=== PATIENT | female | born 1985 | race Caucasian/White ===

== ENCOUNTER 2021-07-05 14:29 | Emergency (ER) | payer SELFPAY ==
[2021-07-05 14:36] VITALS: BMI 31.1
[2021-07-05 15:54] VITALS: BP 123/72; PULSE 94; TEMP 98
== END 2021-07-05 16:16 | disposition home or self-care (01) ==
LOC: JER 14:29
DX: O26.893 Other specified pregnancy related conditions, third trimester (principal); R10.9 Unspecified abdominal pain; Z3A.34 34 weeks gestation of pregnancy
CPT/HCPCS: 99281-25

== ENCOUNTER 2021-08-07 07:47 | Inpatient (IN) | payer OTHER ==
[2021-08-07] MEDS ORDERED: CITRIC ACID/SODIUM CITRATE 30 ML UNIT-DOSE CUP PO ONE (08:44)
[2021-08-07] MEDS ORDERED: ELECTROLYTE-148 SOLN 1,000 ML IV SCH (08:45)
[2021-08-07 09:00] VITALS: BMI 30.9
[2021-08-07] MEDS ORDERED: ceFAZolin SODIUM 1 GM VIAL ONE (10:17)
[2021-08-07] MEDS ORDERED: KETOROLAC TROMETHAMINE 30 MG/1 ML VIAL ONE (10:17)
[2021-08-07] MEDS ORDERED: morphine SULFATE (PF) 1 MG/2 ML SYRINGE ONE (10:17)
[2021-08-07] MEDS ORDERED: ONDANSETRON 4 MG/2 ML VIAL ONE (10:17)
[2021-08-07] MEDS ORDERED: ePHEDrine SULFATE 50 MG/1 ML AMPULE ONE (10:18)
[2021-08-07] MEDS ORDERED: OXYTOCIN 20 UNITS in 0.9% NS 20 UNIT/1,000 ML INFUS.BAG IV ONE ×2 (10:23→13:37)
[2021-08-07 11:22] LABS: URINE APPEARANCE CLEAR; URINE BILIRUBIN NEGATIVE (NEGATIVE); URINE COLOR YELLOW; URINE GLUCOSE (UA) NEGATIVE (NEGATIVE); URINE KETONE NEGATIVE (NEGATIVE); URINE LEUK ESTERASE NEGATIVE (NEGATIVE); URINE NITRITE NEGATIVE (NEGATIVE); URINE PROTEIN NEGATIVE (NEGATIVE); URINE UROBILINOGEN 0.2 mg/dL (0.2-1.0)
[2021-08-07 11:51] LABS: URINE RBC FEW /uL (0-23.9)
[2021-08-07] MEDS ORDERED: OXYTOCIN 10 UNITS/ML VIAL IM ONE (12:08)
[2021-08-07] MEDS ORDERED: IBUPROFEN 800 MG/8 ML IJ IVPB PRN (12:09)
[2021-08-07] MEDS ORDERED: BENZOCAINE 20% 57 GM BOTTLE TP PRN (12:09)
[2021-08-07] MEDS ORDERED: BENZOCAINE 28 GM HEMORRHOIDAL OINTMENT TP PRN (12:09)
[2021-08-07] MEDS ORDERED: METHYLERGONOVINE MALEATE 0.2 MG/1 ML AMP IM PRN (12:09)
[2021-08-07] MEDS ORDERED: WITCH HAZEL 50% (TUCKS) 40 PAD/JAR PAD TP PRN (12:09)
[2021-08-07] MEDS ORDERED: oxyCODONE HCL 5 MG TABLET PO PRN (12:09)
[2021-08-07 12:14] LABS: METHADONE, UR NEGATIVE (NEGATIVE); URINE AMPHETAMINES NEGATIVE (NEGATIVE); URINE BARBITURATES NEGATIVE (NEGATIVE); URINE BENZODIAZEPINES NEGATIVE (NEGATIVE)
[2021-08-07 12:15] LABS: OPIATES, URI NEGATIVE (NEGATIVE); PHENCYCLIDINE,URINE NEGATIVE (NEGATIVE)
[2021-08-07] MEDS ORDERED: OXYTOCIN 20 UNITS in 0.9% NS 20 UNIT/1,000 ML INFUS.BAG IV SCH (12:15)
[2021-08-07 12:17] LABS: COCAINE, UR NEGATIVE (NEGATIVE)
[2021-08-07] MEDS ORDERED: ONDANSETRON 4 MG/2 ML VIAL IVPUSH PRN (12:17)
[2021-08-07] MEDS ORDERED: ACETAMINOPHEN INJECTION 100 ML IVPB ONE (12:47)
[2021-08-07] MEDS: ACETAMINOPHEN 1000 MG/100 ML VIAL IVPB SCH ×2 (12:52→18:14)
[2021-08-07] MEDS: FERROUS SO4 325 MG TABLET (FP) PO SCH (21:19)
[2021-08-08 05:51] LABS: BASO % 0.2 % (0-2.0); EOS % 0.3 % (0-4.5); HEMATOCRIT 30.8 % (32.4-45.2); HEMOGLOBIN 10.9 GM/dL (10.7-15.3); LYMPH % 12.5 % (8-40); MCH 33.8 pg (25.7-33.7); MCHC 35.5 g/dl (32.0-36.0); MEAN CELL VOLUME 95.1 fl (80-96); MEAN PLT VOLUME 8.8 fl (7.5-11.1); MONO % 6.7 % (3.8-10.2); NEUT % 80.3 % (42.8-82.8); PLATELET COUNT 193 10^3/uL (134-434); RBC 3.24 M/mm3 (3.60-5.2); RDW 14.5 % (11.6-15.6); WHITE BLOOD COUNT 10.7 K/mm3 (4.0-10.0)
[2021-08-08] MEDS: FERROUS SO4 325 MG TABLET (FP) PO SCH ×2 (09:32→21:20)
[2021-08-08] MEDS: PRENATAL VITAMINS W/ FOLIC ACID TABLET (FP) PO SCH (09:32)
[2021-08-08] MEDS: SIMETHICONE 80 MG TAB.CHEW (FP) PO PRN ×2 (09:40→15:10)
[2021-08-08] MEDS ORDERED: BISACODYL 10 MG SUPP.RECT RC PRN (12:09)
[2021-08-08] MEDS: IBUPROFEN 600 MG TABLET (FP) PO PRN (15:10)
[2021-08-08 22:57] LABS: SYPHILIS W/ RPR CONF NON-REACTIVE (NONREACTIVE)
[2021-08-08 23:13] LABS: HIV INTERPRETATION NEGATIVE (NEGATIVE)
[2021-08-09] MEDS: IBUPROFEN 600 MG TABLET (FP) PO PRN ×3 (04:08→21:32)
[2021-08-09] MEDS: SIMETHICONE 80 MG TAB.CHEW (FP) PO PRN ×2 (04:08→21:33)
[2021-08-09] MEDS: PRENATAL VITAMINS W/ FOLIC ACID TABLET (FP) PO SCH (09:38)
[2021-08-09] MEDS: FERROUS SO4 325 MG TABLET (FP) PO SCH ×2 (09:38→21:24)
[2021-08-10 07:55] LABS: BASO % 0.4 % (0-2.0); EOS % 1.9 % (0-4.5); HEMATOCRIT 35.9 % (32.4-45.2); HEMOGLOBIN 12.3 GM/dL (10.7-15.3); LYMPH % 12.6 % (8-40); MCH 32.5 pg (25.7-33.7); MCHC 34.1 g/dl (32.0-36.0); MEAN CELL VOLUME 95.4 fl (80-96); MEAN PLT VOLUME 8.3 fl (7.5-11.1); MONO % 6.1 % (3.8-10.2); PLATELET COUNT 255 10^3/uL (134-434); RBC 3.77 M/mm3 (3.60-5.2); RDW 14.6 % (11.6-15.6); WHITE BLOOD COUNT 13.2 K/mm3 (4.0-10.0)
[2021-08-10] MEDS: SIMETHICONE 80 MG TAB.CHEW (FP) PO PRN (09:24)
[2021-08-10] MEDS: IBUPROFEN 600 MG TABLET (FP) PO PRN (09:24)
[2021-08-10] MEDS: FERROUS SO4 325 MG TABLET (FP) PO SCH (09:24)
[2021-08-10] MEDS: PRENATAL VITAMINS W/ FOLIC ACID TABLET (FP) PO SCH (09:26)
[2021-08-10 11:11] VITALS: BP 114/71; PULSE 90; TEMP 98.3
== END 2021-08-10 13:10 | disposition home or self-care (01) | DRG 540 ==
LOC: JLDR 07:47 → J3W 14:00
PROVIDERS: ADMIT Obstetrics & Gynecology; ATTEND Obstetrics & Gynecology
PROC: 10D00Z1 Extraction of Products of Conception, Low, Open Approach (ICD-10-PCS; principal; 2021-08-07)
DX: O34.211 Maternal care for low transverse scar from previous cesarean delivery (principal); N85.8 Other specified noninflammatory disorders of uterus; Z3A.39 39 weeks gestation of pregnancy; Z37.0 Single live birth
CPT/HCPCS: 36415; 80053; 80307; 81003; 85025; 85610; 86780; 86850; 86900; 86901; 87389; C9803; J0131; U0003; U0005